=== PATIENT | female | born 1970 ===

== ENCOUNTER 2019-12-24 10:18 | Outpatient (CLI) | payer OTHER | END 2019-12-24 10:29 | disposition home or self-care (01) | LOC: SONOGRAMA 10:18 → MAMO-SONO 10:45 | PROVIDERS: ATTEND Internal Medicine Cardiovascular Disease | DX: M12.811 Other specific arthropathies, not elsewhere classified, right shoulder (principal); M12.812 Other specific arthropathies, not elsewhere classified, left shoulder ==

== ENCOUNTER 2021-01-13 14:18 | Outpatient (CLI) | payer OTHER | END 2021-01-13 14:32 | disposition home or self-care (01) | LOC: RAD 14:18 | PROVIDERS: ATTEND Orthopaedic Surgery | DX: M65.221 Calcific tendinitis, right upper arm (principal); M65.222 Calcific tendinitis, left upper arm ==